=== PATIENT | male | born 1935 | race Caucasian/White ===

== ENCOUNTER → 2019-05-08 | Outpatient (CLI) | payer MEDICARE | END | disposition home or self-care (01) | LOC: SHCH 10:16 | PROVIDERS: ATTEND Internal Medicine Cardiovascular Disease | DX: I08.0 Rheumatic disorders of both mitral and aortic valves (principal) | CPT/HCPCS: 93306 ==

== ENCOUNTER 2021-09-30 05:37 | Day surgery (SDC) | payer MEDICARE ==
[2021-09-24 16:06] LABS: BASOPHILS % (AUTO) 0.5 % (0.0-5.0); EOSINOPHILS % (AUTO) 4.8 % (0.0-8.0); HEMATOCRIT 34.2 % (42-54); LYMPHOCYTES % (AUTO) 35.8 % (21.0-51.0); MEAN CORPUSCULAR HEMOGLOBIN 33.3 pg (27.0-33.0); MEAN CORPUSCULAR HGB CONC 31.9 g/dL (32.0-36.0); MEAN CORPUSCULAR VOLUME 104.6 fL (79-99); MONOCYTES % (AUTO) 9.2 % (3.0-13.0); NEUTROPHILS % (AUTO) 49.7 % (40.0-77.0); PLATELET COUNT (AUTO) 106 K/uL (130-400); RED BLOOD CELL COUNT(AUTO) 3.27 MIL/uL (4.50-6.20); RED CELL DISTRIBUTION WIDTH 14.5 % (11.0-15.5); WHITE BLOOD COUNT (AUTO) 4.1 K/uL (4.8-10.8)
[2021-09-24 16:16] LABS: INR 1.15 (0.85-1.15); PROTHROMBIN TIME 12.4 SEC (9.6-11.6)
[2021-09-24 16:17] LABS: CREATININE 1.1 mg/dL (0.5-1.5)
[2021-09-24 16:18] LABS: PARTIAL THROMBOPLASTIN TIME 28.5 SEC (26.3-35.5)
[~2021-09-30] VITALS: Ht 177.8 cm; Wt 104.3 kg
[2021-09-30] VITALS (9 sets, daily range): BP systolic 127–166; BP diastolic 67–87
[~2021-09-30 05:37] MED LIST: ALBU8.5H8 IH; ASPI-891 PO; CLOP75TA14 PO; FURO40TA5 PO; ISOS120T14 PO; LOSA25TA41 PO; LUBI24CA2 PO; METO50TA18 PO; MONT-39 PO; NITR0.4T50 SL; OXYM-17 NS; PANT40TA PO; POTA10CA44 PO; PRAV20TA4 PO; RANO10003 PO; TAMS-1 PO; VITA1TAB22 PO
[2021-09-30] MEDS ORDERED: 0.9% NACL 500ML IV.SOLN 500 ML IV SCH (06:00)
[2021-09-30] MEDS ORDERED: VANCOMYCIN 1G/250ML KIT 250 ML IV SCH (06:00)
[2021-09-30] MEDS ORDERED: 0.9%NACL 1000ML 1,000 ML IV ONE (06:46)
[2021-09-30] MEDS ORDERED: LIDOCAINE HCL 1% MDV 50ML VIAL ONE (07:14)
[2021-09-30] MEDS ORDERED: MIDAZOLAM HCL 1 MG/ML 2ML VIAL ONE ×3 (07:14→09:20)
[2021-09-30] MEDS ORDERED: MEPERIDINE-PF 25 MG/ML SYG ONE ×3 (07:14→09:20)
[2021-09-30] MEDS ORDERED: BUPIVACAINE/PF 0.25% 30ML VIAL IJ ONE (07:14)
[2021-09-30] MEDS ORDERED: IOHEXOL-350 75 ML VIAL IV ONE (07:57)
[2021-09-30] MEDS ORDERED: THROMBIN-JMI 5000 UNIT/VIAL TP ONE (09:40)
[2021-09-30] MEDS ORDERED: TRAMADOL HCL 50 MG TABLET PO PRN (10:00)
[2021-09-30] MEDS ORDERED: TRAM50TA4 PO (10:10)
== END 2021-09-30 13:30 | disposition home or self-care (01) ==
LOC: DAH 05:37
PROVIDERS: ATTEND Internal Medicine Cardiovascular Disease
DX: Z45.010 Encounter for checking and testing of cardiac pacemaker pulse generator [battery] (principal); Q24.6 Congenital heart block; I49.5 Sick sinus syndrome; I44.7 Left bundle-branch block, unspecified; I11.0 Hypertensive heart disease with heart failure; I50.22 Chronic systolic (congestive) heart failure; G47.33 Obstructive sleep apnea (adult) (pediatric); I25.5 Ischemic cardiomyopathy; E78.5 Hyperlipidemia, unspecified; Z86.73 Personal history of transient ischemic attack (TIA), and cerebral infarction without residual deficits; Z87.891 Personal history of nicotine dependence; Z79.82 Long term (current) use of aspirin; Z79.899 Other long term (current) drug therapy; Z98.890 Other specified postprocedural states; Z79.01 Long term (current) use of anticoagulants; Z95.1 Presence of aortocoronary bypass graft
CPT/HCPCS: 33225; 33229; 36415; 71045; 80048; 85025; 85610; 85730; 93005; A4215; A4216; A4221; A4222; A4223 ×3; A4335; A4554; A4606; A4663; A6258; A6402; C1769; C1900; C2621; J2175 ×3; J2250 ×3; J3370; J3490 ×3; J7030; Q9967; 99156; 99157

== ENCOUNTER → 2022-12-28 | Outpatient (CLI) | payer MEDICARE ==
[~2022-12-28] MED LIST changes: +CLOP-31 PO; -CLOP75TA14 PO; -POTA10CA44 PO; +POTA10CA45 PO; +TRAM50TA4 PO
[2022-12-28 13:58] LABS: CREATININE 1.3 mg/dL (0.5-1.5)
== END | disposition home or self-care (01) ==
LOC: LAB 12:52
PROVIDERS: ATTEND Urology
DX: R31.0 Gross hematuria (principal)
CPT/HCPCS: 36415; 82565; 84520

== ENCOUNTER → 2022-12-30 | Outpatient (CLI) | payer MEDICARE ==
[~2022-12-30] MED LIST changes: +IOHEXOL 350 MG/ML 100ML INFUS..BTL IV ONE
== END | disposition home or self-care (01) ==
LOC: RAH 09:45
PROVIDERS: ATTEND Urology
DX: J90 Pleural effusion, not elsewhere classified (principal); J98.11 Atelectasis; R31.0 Gross hematuria
CPT/HCPCS: 74178; Q9967

== ENCOUNTER 2023-09-02 14:41 | Observation (INO) | payer MEDICARE ==
[~2023-09-02] VITALS: Ht 180.3 cm; Wt 84.4 kg
[~2023-09-02 14:41] MED LIST changes: -IOHEXOL 350 MG/ML 100ML INFUS..BTL IV ONE; -POTA10CA45 PO; +POTA10CA85 PO
[2023-09-02 15:04] LABS: BASOPHILS # (AUTO) 0.02 K/uL (0.00-0.20); BASOPHILS % (AUTO) 0.5 % (0.0-5.0); EOSINOPHILS # (AUTO) 0.14 K/uL (0.00-0.70); EOSINOPHILS % (AUTO) 3.5 % (0.0-8.0); IMMATURE GRANULOCYTE ABSOLUTE 0.01 K/uL (0-1); LYMPHOCYTES # (AUTO) 1.3 K/uL (1.0-4.8); LYMPHOCYTES % (AUTO) 31.6 % (21.0-51.0); MEAN CORPUSCULAR HEMOGLOBIN 33.6 pg (27.0-33.0); MEAN CORPUSCULAR HGB CONC 32.4 g/dL (32.0-36.0); MEAN CORPUSCULAR VOLUME 103.8 fL (79-99); MONOCYTES # (AUTO) 0.5 K/uL (0.1-1.0); MONOCYTES % (AUTO) 11.9 % (3.0-13.0); NEUTROPHILS # (AUTO) 2.1 K/uL (1.8-7.7); NEUTROPHILS % (AUTO) 52.3 % (40.0-77.0); PLATELET COUNT (AUTO) 93 K/uL (130-400); RED BLOOD CELL COUNT(AUTO) 3.18 MIL/uL (4.50-6.20); RED CELL DISTRIBUTION WIDTH 14.9 % (11.0-15.5); WHITE BLOOD COUNT (AUTO) 4.1 K/uL (4.8-10.8)
[2023-09-02 15:19] LABS: CREATININE 1.1 mg/dL (0.5-1.5); POTASSIUM 3.5 mmol/L (3.5-5.1)
[2023-09-02 15:23] LABS: B-TYPE NATRIURETIC PEPTIDE 479 pg/mL (0-100)
[2023-09-02 15:28] LABS: ALBUMIN 3.1 g/dL (3.5-5.0); BILIRUBIN,TOTAL 0.8 mg/dL (0.2-1.0); MAGNESIUM 1.9 mg/dL (1.80-2.40); TOTAL PROTEIN, SERUM 6.4 g/dL (6.0-8.3)
[2023-09-02] MEDS ORDERED: NITROGLYCERIN 0.4 MG SL TAB SL STA (17:10)
[2023-09-02] MEDS ORDERED: FUROSEMIDE 40MG VIAL IV ONE (17:30)
[2023-09-02 18:04] LABS: APPEARANCE,URINE CLEAR (CLEAR); BILIRUBIN,URINE NEGATIVE (NEGATIVE); COLOR,URINE LIGHT-YELLOW (YELLOW); GLUCOSE, URINE (UA) NEGATIVE (NEGATIVE); KETONES,URINE NEGATIVE (NEGATIVE); LEUKOCYTE ESTERASE ,URINE NEGATIVE Leu/uL (NEGATIVE); NITRATE,URINE NEGATIVE (NEGATIVE); OCCULT BLOOD,URINE NEGATIVE (NEGATIVE); PROTEIN,URINE NEGATIVE (NEGATIVE); UROBILINOGEN,URINE 0.2 mg/dL (0.2-1.0)
[2023-09-02 18:05] LABS: ADD UA MICROSCOPIC NO
[2023-09-02] MEDS: FUROSEMIDE 40MG VIAL IV SCH (21:44)
[2023-09-02] MEDS ORDERED: CARV6.2579 PO (22:28)
[2023-09-02] MEDS ORDERED: NITROGLYCERIN 0.4 MG SL TAB SL SCH (22:30)
[2023-09-02] MEDS ORDERED: TAMSULOSIN HCL 0.4 MG CAP.ER.24H PO SCH (22:30)
[2023-09-02] MEDS ORDERED: MAG/ALUM/SIMETH 30 ML UDCUP PO PRN (23:00)
[2023-09-02] MEDS ORDERED: LACTULOSE 20 GM/30 ML UDCUP PO PRN (23:00)
[2023-09-02] MEDS ORDERED: POTASSIUM CHLORIDE 10% ELIXIR 20 MEQ/15 ML UDCUP PO PRN (23:00)
[2023-09-02] MEDS ORDERED: ALBUTEROL 0.083% 2.5 MG/3 ML INH IH PRN (23:00)
[2023-09-02] MEDS ORDERED: KCL 20 MEQ ERTAB PO PRN (23:00)
[2023-09-02] MEDS ORDERED: ONDANSETRON 4MG INJ IV PRN (23:00)
[2023-09-02] MEDS ORDERED: HYDRALAZINE 20MG/ML VIAL IV PRN (23:00)
[2023-09-02] MEDS ORDERED: MAGNESIUM 2GM PREMIX 50ML 50 ML IV PRN (23:00)
[2023-09-02] MEDS ORDERED: POTASSIUM CHLORIDE 20MEQ/100ML 100 ML IV PRN (23:00)
[2023-09-02] MEDS ORDERED: ACETAMINOPHEN 325 MG TAB PO PRN ×2 (23:00)
[2023-09-03] VITALS (7 sets, daily range): BP systolic 170–179; BP diastolic 69–97; PULSE 79–80; RESP 16–20; O2SAT 95–96
[2023-09-03] MEDS: KCL 20 MEQ ERTAB PO SCH ×3 (00:40→14:00)
[2023-09-03] MEDS ORDERED: LORAZEPAM 2 MG/ML 1 ML VIAL ONE (01:31)
[2023-09-03] MEDS: FUROSEMIDE 40MG VIAL IV SCH ×3 (02:33→18:30)
[2023-09-03 06:47] LABS: HEMATOCRIT 36.4 % (42-54); MEAN CORPUSCULAR HEMOGLOBIN 34.1 pg (27.0-33.0); MEAN CORPUSCULAR HGB CONC 32.7 g/dL (32.0-36.0); MEAN CORPUSCULAR VOLUME 104.3 fL (79-99); RED BLOOD CELL COUNT(AUTO) 3.49 MIL/uL (4.50-6.20); WHITE BLOOD COUNT (AUTO) 4.9 K/uL (4.8-10.8)
[2023-09-03 06:57] LABS: CREATININE 1.1 mg/dL (0.5-1.5); MAGNESIUM 1.8 mg/dL (1.80-2.40); POTASSIUM 3.2 mmol/L (3.5-5.1)
[2023-09-03] MEDS ORDERED: CLOPIDOGREL 75MG TAB PO SCH (09:00)
[2023-09-03] MEDS ORDERED: NON-FORMULARY MEDICATION 1 EACH (Potassium Chloride 10 MEQ) PO SCH (09:00)
[2023-09-03] MEDS ORDERED: LUBIPROSTONE 24 MCG CAP PO SCH (09:00)
[2023-09-03] MEDS ORDERED: TAMSULOSIN HCL 0.4 MG CAP.ER.24H PO SCH (09:00)
[2023-09-03] MEDS ORDERED: ASPIRIN 325MG EC TAB PO SCH (09:00)
[2023-09-03] MEDS ORDERED: CARVEDILOL 6.25 MG TABLET PO SCH (09:00)
[2023-09-03] MEDS ORDERED: RANOLAZINE 500 MG TAB.SR.12H PO SCH (09:00)
[2023-09-03] MEDS ORDERED: PANTOPRAZOLE 40 MG TAB DR PO SCH (09:00)
[2023-09-03] MEDS ORDERED: ENOXAPARIN SODIUM 30 MG/0.3 ML SQ SCH (09:00)
[2023-09-03] MEDS ORDERED: ISOSORBIDE MONO 60MG SR TAB PO SCH (09:00)
[2023-09-03] MEDS ORDERED: LORAZEPAM 2 MG/ML 1 ML VIAL IVP PRN (11:00)
[2023-09-03] MEDS ORDERED: SIMVASTATIN 20 MG TABLET PO SCH (21:00)
[2023-09-03] MEDS ORDERED: MONTELUKAST SODIUM 10 MG TAB PO SCH (21:00)
== END 2023-09-03 20:45 | disposition home or self-care (01) ==
LOC: EDH 14:41 → EDHIP 18:10 → 3CH 09-03 00:22
PROVIDERS: ADMIT Internal Medicine; ATTEND Internal Medicine
DX: I13.0 Hypertensive heart and chronic kidney disease with heart failure and stage 1 through stage 4 chronic kidney disease, or unspecified chronic kidney disease (principal); N18.9 Chronic kidney disease, unspecified; I50.43 Acute on chronic combined systolic (congestive) and diastolic (congestive) heart failure; J81.1 Chronic pulmonary edema; I25.110 Atherosclerotic heart disease of native coronary artery with unstable angina pectoris; F03.A0 Unspecified dementia, mild, without behavioral disturbance, psychotic disturbance, mood disturbance, and anxiety; F05 Delirium due to known physiological condition; J44.9 Chronic obstructive pulmonary disease, unspecified; E78.5 Hyperlipidemia, unspecified; I25.5 Ischemic cardiomyopathy; G90.3 Multi-system degeneration of the autonomic nervous system; F03.90 Unspecified dementia, unspecified severity, without behavioral disturbance, psychotic disturbance, mood disturbance, and anxiety; Z95.0 Presence of cardiac pacemaker; Z88.1 Allergy status to other antibiotic agents; Z88.8 Allergy status to other drugs, medicaments and biological substances; Z86.73 Personal history of transient ischemic attack (TIA), and cerebral infarction without residual deficits; Z79.82 Long term (current) use of aspirin; Z79.02 Long term (current) use of antithrombotics/antiplatelets
CPT/HCPCS: 96374; 99285; 83735 ×2; 84484 ×3; 80053; 83880; 85025; 81003; 36415 ×2; 71045; 93005 ×2; 96376; 96372; 96375; 80048; 85027; 82948; G0378 ×22; J1940 ×3; J1650; J2060 ×2

== ENCOUNTER → 2024-02-13 | Outpatient (CLI) | payer MEDICARE ==
[~2024-02-13] MED LIST changes: +CARV6.2579 PO; -LOSA25TA41 PO; -METO50TA18 PO; -POTA10CA85 PO; +POTA10CA95 PO; -TRAM50TA4 PO; +VITA-427 PO; -VITA1TAB22 PO
== END | disposition home or self-care (01) ==
LOC: RAH 13:00
PROVIDERS: ATTEND Internal Medicine
DX: S69.92XD Unspecified injury of left wrist, hand and finger(s), subsequent encounter (principal); M19.042 Primary osteoarthritis, left hand; G90.523 Complex regional pain syndrome I of lower limb, bilateral; M79.89 Other specified soft tissue disorders; X58.XXXD Exposure to other specified factors, subsequent encounter
CPT/HCPCS: 70140; 70250; 73130; 73565; 73560

== ENCOUNTER 2024-04-06 06:56 | Day surgery (SDC) | payer MEDICARE ==
[2024-04-04 12:33] LABS: BASOPHILS # (AUTO) 0.02 K/uL (0.00-0.20); BASOPHILS % (AUTO) 0.5 % (0.0-5.0); EOSINOPHILS # (AUTO) 0.18 K/uL (0.00-0.70); EOSINOPHILS % (AUTO) 4.4 % (0.0-8.0); HEMATOCRIT 32.4 % (42-54); IMMATURE GRANULOCYTE ABSOLUTE 0.01 K/uL (0-1); LYMPHOCYTES # (AUTO) 1.1 K/uL (1.0-4.8); LYMPHOCYTES % (AUTO) 28.1 % (21.0-51.0); MEAN CORPUSCULAR HEMOGLOBIN 33.3 pg (27.0-33.0); MEAN CORPUSCULAR HGB CONC 31.8 g/dL (32.0-36.0); MEAN CORPUSCULAR VOLUME 104.9 fL (79-99); MONOCYTES # (AUTO) 0.5 K/uL (0.1-1.0); MONOCYTES % (AUTO) 12.8 % (3.0-13.0); NEUTROPHILS # (AUTO) 2.2 K/uL (1.8-7.7); PLATELET COUNT (AUTO) 131 K/uL (130-400); RED BLOOD CELL COUNT(AUTO) 3.09 MIL/uL (4.50-6.20); RED CELL DISTRIBUTION WIDTH 15.1 % (11.0-15.5); WHITE BLOOD COUNT (AUTO) 4.1 K/uL (4.8-10.8)
[2024-04-04 12:57] LABS: CREATININE 1.4 mg/dL (0.5-1.3); POTASSIUM 4.2 mmol/L (3.5-5.1)
[2024-04-04 13:19] VITALS: BP 140/72; PULSE 66; RESP 18; TEMP 98
[~2024-04-06] VITALS: Ht 177.8 cm; Wt 89.4 kg
[2024-04-06] VITALS (13 sets, daily range): BP systolic 101–112; BP diastolic 43–71; PULSE 59–68; RESP 12–16; TEMP 96.2–97.8
[~2024-04-06 06:56] MED LIST changes: -ALBU8.5H8 IH; +CARV25TA PO; -CARV6.2579 PO; +FERS325 PO; +HONE44PA TP; +LOSA50TA64 PO; -LUBI24CA2 PO; +MEGE400O45 PO; -OXYM-17 NS; -PANT40TA PO; +PANT40TA54 PO; +POLY17PO4 PO; +POTA-187 PO; -POTA10CA95 PO
[2024-04-06] MEDS: cefTRIAXone 1G VIAL ONE (07:25)
[2024-04-06] MEDS: LACTATED RINGERS 1000ML 1,000 ML IV ONE (07:26)
[2024-04-06] MEDS ORDERED: proPOFol 1000 MG/100 ML 100 ML IV ONE (07:32)
[2024-04-06] MEDS ORDERED: SUCCINYLCHOLINE CHLORIDE 20 MG/ML 10 ML VIAL ONE (08:29)
[2024-04-06] MEDS ORDERED: FENTanyl CITRate PF 50 MCG/1 ML 2ML VIAL ONE (08:29)
[2024-04-06] MEDS ORDERED: LIDOCAINE HCL MPF 1% 5ML VIAL ONE (08:29)
[2024-04-06] MEDS ORDERED: rocuRONium bROMide 10MG/1ML 5ML VL ONE (08:29)
[2024-04-06] MEDS ORDERED: proPOFol 10 MG/ML 20ML VIAL IV ONE (08:29)
[2024-04-06] MEDS ORDERED: PHENYLEPHRINE HCL 10 MG/ML 1ML VIAL IV ONE (08:31)
[2024-04-06] MEDS: cefTRIAXone 1G VIAL IVPB ONE (08:40)
[2024-04-06] MEDS ORDERED: dexaMETHasone SOD PHOSPHATE 10MG/ML 1ML VIAL ONE (08:48)
[2024-04-06] MEDS ORDERED: ONDANSETRON 4MG INJ ONE (08:49)
[2024-04-06] MEDS ORDERED: GLYCOPYRROLATE 0.2 MG/ML 5 ML VIAL ONE (09:14)
[2024-04-06] MEDS ORDERED: NEOSTIGMINE METHYLSULFATE 1MG/ML IV ONE (09:14)
[2024-04-06] MEDS ORDERED: SUGAMMADEX SODIUM 200 MG/2 ML VIAL IV ONE (09:22)
[2024-04-06] MEDS ORDERED: PHENAZOPYRIDINE HCL 200 MG TABLET PO ONE (10:30)
== END 2024-04-06 11:00 | disposition home or self-care (01) ==
LOC: DAH 06:56
PROVIDERS: ATTEND Urology
DX: D49.4 Neoplasm of unspecified behavior of bladder (principal); N35.819 Other urethral stricture, male, unspecified site; R35.1 Nocturia; R31.9 Hematuria, unspecified; I25.10 Atherosclerotic heart disease of native coronary artery without angina pectoris; Z87.891 Personal history of nicotine dependence; Z95.0 Presence of cardiac pacemaker; Z88.8 Allergy status to other drugs, medicaments and biological substances; Z86.73 Personal history of transient ischemic attack (TIA), and cerebral infarction without residual deficits; Z79.01 Long term (current) use of anticoagulants; Z79.899 Other long term (current) drug therapy
CPT/HCPCS: 80048; 85025; 36415; 93005; 52234; 88305; 88342; 71045; 88341; A6260; A4344; A4355; A4354; A4340; J7120; J3010; J1100; J0330; J3490 ×3; J0696 ×2; J2704 ×2; J2405; J2710; J2371; A4358; A4930; C1769; A4215; A4223; A4222; A4221; A4663; A4510; A5113; A4600

== ENCOUNTER → 2024-05-31 | Outpatient (CLI) | payer MEDICARE ==
[2024-05-31 12:46] LABS: CREATININE 1.2 mg/dL (0.5-1.3)
== END | disposition home or self-care (01) ==
LOC: LAB 11:01
PROVIDERS: ATTEND Internal Medicine Cardiovascular Disease
DX: I50.31 Acute diastolic (congestive) heart failure (principal)
CPT/HCPCS: 36415; 80048; 83880